=== PATIENT | male | born 1940 | race Caucasian/White ===

== ENCOUNTER 2017-12-05 04:35 | Emergency (ER) | payer MEDICARE ==
[~2017-12-05] VITALS: Ht 172.7 cm; Wt 74.8 kg
[~2017-12-05 04:35] MED LIST: ACET325 PO; ACETYLCYST; ALBU3IS; ALBU3IS INH; ALBU90OI INH; AMLO5 PO; AMOCLA875 PO; ASPI325 PO; Allergy Medicat25 MG PO; Allergy Relief10 M1 PO; BENMENLOZ; BENZ100A PO; BUDE6HFA; BUDE6HFA INH; CEPACOL SORE T1 EACH MM; CHOL10002; CHOL10002 PO; CICL.77TC TOP; CLARITIN10 MG PO; CLOBET30L TOP; CODBUTASA PO; Colace100 MG PO; DIGO.125 PO; DOCU100 PO; Diphenhydramine50 M1 PO; FERR325 PO; FERSU220EL PO; FINA5 PO; FLONASE ALLERG9.9 ML XX; FLUC200 PO; GUAI600T33 PO; Guaifenesin Wit10 ML PO; HYDRA25 PO; Ipratr-Albuterol3 ML INH; KETO15TC TP; LEVO750 PO; LEVSOD100 PO; LEVSOD50 PO; LORA1 PO; LORA10 PO; Levaquin500 MG PO; MAGOXI400 PO; METH10 PO; METO100 PO; MULVITMIND PO; Multivitamins1 EAC4 PO; OMEPRAZOLE MAGN20 MG PO; Omeprazole20 M1; Omeprazole20 M1 PO; RANI150 PO; SENN187 PO; Synthroid112 MCG PO; TAMS.4ER PO; TIOT18; TIOT18 IH; TIOT18 INH; TRAZ50 PO; Ventolin Soln3 ML INH; Vitamin D400 UNI2 PO; WARF2.5 PO; XARELTO20 MG PO
[2017-12-05 05:32] LABS: BASOPHILS ABSOLUTE AUTO 0.05 K/mm3 (0.00-0.23); BASOPHILS PERCENT AUTO 1 % (0-2); EOSINOPHILS ABSOLUTE AUTO 0.09 K/mm3 (0.00-0.68); EOSINOPHILS PERCENT AUTO 1 % (0-6); Hematocrit 37.3 % (37.0-53.0); IMMATURE GRAN ABSOLUTE AUTO 0.04 K/mm3 (0.00-0.10); IMMATURE GRAN PERCENT AUTO 0 % (0-1); LYMPHOCYTES ABSOLUTE AUTO 1.08 K/mm3 (0.84-5.20); LYMPHOCYTES PERCENT AUTO 12 % (21-46); MONOCYTES PERCENT AUTO 15 % (4-13); Mean Corpuscular HGB 26.7 pg (26.0-34.0); Mean Corpuscular HGB Conc 32.2 g/dL (31.5-36.5); Mean Corpuscular Volume 83 fL (80-100); Mean Platelet Volume 10.2 fL (9.1-12.4); NEUTROPHILS ABSOLUTE AUTO 6.65 K/mm3 (1.96-9.15); NEUTROPHILS PERCENT AUTO 72 % (41-73); Platelet Count 198 K/mm3 (150-400); RDW Coefficient Variation 15.7 % (11.7-14.2); RDW Standard Deviation 46.9 fL (35.1-46.3); White Blood Cell Count 9.31 K/mm3 (4.00-11.30)
[2017-12-05 05:43] LABS: International Normalized Ratio 1.15
[2017-12-05 05:56] LABS: Alanine Aminotransfer (ALT/SGP 17 U/L (12-78); Albumin, Blood 3.2 g/dL (3.4-5.0); Albumin/Globulin Ratio 0.9 (0.8-1.8); Alk Phos 68 U/L (50-136); Anion Gap 10 mmol/L (6-16); Aspartate Aminotrans (AST/SGOT 18 U/L (12-37); Bilirubin, Total 0.7 mg/dL (0.1-1.0); Blood Urea Nitrogen 15 mg/dL (8-24); Bun/Creatinine Ratio 13.6 (12.0-20.0); CO2, Blood 24 mmol/L (21-32); Calcium, Blood 8.3 mg/dL (8.5-10.1); Chloride, Blood 103 mmol/L (98-108); Globulin, Blood 3.5 g/dL (2.2-4.0); Glomerular Filtration Rate >60 (60-); Glucose, Blood 101 mg/dL (70-99); Potassium, Blood 3.7 mmol/L (3.5-5.5); Sodium, Blood 137 mmol/L (136-145); Total Protein, Blood 6.7 g/dL (6.4-8.2); Troponin I <0.015 ng/mL (0.000-0.040)
[2018-07-02] MEDS ORDERED: CEFP200 PO (08:57)
[2018-07-02] MEDS ORDERED: Hydrocodone-Ap1 EA23 PO (09:03)
[2018-07-02] MEDS ORDERED: LEVSOD150 PO (09:04)
[2018-07-02] MEDS ORDERED: METPRE4DP PO (09:05)
[2018-07-02] MEDS ORDERED: MOME220I INH (09:05)
[2018-07-02] MEDS ORDERED: PRAV20 PO (09:10)
[2018-07-02] MEDS ORDERED: PANT40 PO (09:10)
[2018-07-02] MEDS ORDERED: THIA100 PO (09:11)
[2018-07-08] MEDS ORDERED: CODEINE-GUAIFE120 ML PO (11:53)
[2018-07-08] MEDS ORDERED: BENMENLOZ PO (11:56)
[2018-07-08] MEDS ORDERED: Augmentin 875-1 EACH PO (11:57)
[2018-07-08] MEDS ORDERED: GAVILAX17 GM PO (11:58)
[2018-07-08] MEDS ORDERED: SACC250C PO (11:59)
[2018-07-08] MEDS ORDERED: FLUT1DIS5 INH (12:00)
[2018-07-18] MEDS ORDERED: Zithromax250 MG (10:21)
[2018-07-18] MEDS ORDERED: CEFP200 PO (10:22)
[2018-07-18] MEDS ORDERED: CYAN100T2 (10:23)
[2018-07-18] MEDS ORDERED: LORA1SY (10:25)
[2018-07-18] MEDS ORDERED: MAGOXI400 (10:25)
== END 2017-12-05 06:35 | disposition home or self-care (01) ==
LOC: ER 04:35
PROVIDERS: Emergency Medicine
DX: I48.91 Unspecified atrial fibrillation (principal); I10 Essential (primary) hypertension; J44.9 Chronic obstructive pulmonary disease, unspecified; E03.9 Hypothyroidism, unspecified; Z91.048 Other nonmedicinal substance allergy status; Z88.8 Allergy status to other drugs, medicaments and biological substances; Z91.041 Radiographic dye allergy status; Z88.1 Allergy status to other antibiotic agents; Z79.899 Other long term (current) drug therapy; Z79.82 Long term (current) use of aspirin; Z87.891 Personal history of nicotine dependence
CPT/HCPCS: 36415; 71046; 80053; 83880; 84484; 85025; 85610; 93005; 93010; 96360; 99283; J7030

== ENCOUNTER 2018-01-26 11:42 | Day surgery (SDC) | payer OTHER, MEDICARE ==
[~2018-01-26] VITALS: Ht 170.2 cm; Wt 76.3 kg
[~2018-01-26 11:42] MED LIST changes: -ALBU3IS INH; +ALBU3IS PO
== END 2018-01-26 17:15 | disposition home or self-care (01) ==
LOC: ORSCSDS 11:42
PROVIDERS: Internal Medicine Gastroenterology
PROC: 0DB58ZX Excision of Esophagus, Via Natural or Artificial Opening Endoscopic, Diagnostic (ICD-10-PCS; principal; 2018-01-26 15:30)
PROC: 0DBL8ZX Excision of Transverse Colon, Via Natural or Artificial Opening Endoscopic, Diagnostic (ICD-10-PCS; principal; 2018-01-26 15:30)
DX: D50.9 Iron deficiency anemia, unspecified (principal); K22.711 Barrett's esophagus with high grade dysplasia; K44.9 Diaphragmatic hernia without obstruction or gangrene; D12.3 Benign neoplasm of transverse colon; K64.8 Other hemorrhoids; K57.30 Diverticulosis of large intestine without perforation or abscess without bleeding; Z80.0 Family history of malignant neoplasm of digestive organs; J44.9 Chronic obstructive pulmonary disease, unspecified; I10 Essential (primary) hypertension; M06.9 Rheumatoid arthritis, unspecified; E03.9 Hypothyroidism, unspecified; Z87.891 Personal history of nicotine dependence; I48.0 Paroxysmal atrial fibrillation; Z83.71 Family history of colonic polyps; Z79.899 Other long term (current) drug therapy; Z79.01 Long term (current) use of anticoagulants; Z79.82 Long term (current) use of aspirin
CPT/HCPCS: 88305; J2370

== ENCOUNTER 2018-02-04 12:05 | Day surgery (SDC) | payer OTHER, MEDICARE | END 2018-02-04 16:44 | disposition home or self-care (01) | LOC: ORSCSDS 12:05 | PROVIDERS: Internal Medicine Gastroenterology | PROC: 0DB58ZZ Excision of Esophagus, Via Natural or Artificial Opening Endoscopic (ICD-10-PCS; principal; 2018-02-04 13:45) | DX: K22.8 Other specified diseases of esophagus (principal); C15.9 Malignant neoplasm of esophagus, unspecified; K44.9 Diaphragmatic hernia without obstruction or gangrene; D50.9 Iron deficiency anemia, unspecified; Z87.11 Personal history of peptic ulcer disease; Z87.891 Personal history of nicotine dependence; J44.9 Chronic obstructive pulmonary disease, unspecified; I48.91 Unspecified atrial fibrillation; Z80.0 Family history of malignant neoplasm of digestive organs; I10 Essential (primary) hypertension; E03.9 Hypothyroidism, unspecified; E78.5 Hyperlipidemia, unspecified; Z79.82 Long term (current) use of aspirin; Z79.899 Other long term (current) drug therapy | CPT/HCPCS: 88305; J7120 ==

== ENCOUNTER 2018-06-19 04:44 | Emergency (ER) | payer MEDICARE ==
[~2018-06-19] VITALS: Ht 167.6 cm; Wt 74.8 kg
[2018-06-19 05:11] LABS: BASOPHILS PERCENT AUTO 0 % (0-2); EOSINOPHILS PERCENT AUTO 0 % (0-6); Hematocrit 37.2 % (37.0-53.0); Hemoglobin 12.4 g/dL (13.5-17.5); IMMATURE GRAN ABSOLUTE AUTO 0.03 K/mm3 (0.00-0.10); IMMATURE GRAN PERCENT AUTO 0 % (0-1); LYMPHOCYTES ABSOLUTE AUTO 0.59 K/mm3 (0.84-5.20); LYMPHOCYTES PERCENT AUTO 8 % (21-46); MONOCYTES ABSOLUTE AUTO 0.33 K/mm3 (0.16-1.47); MONOCYTES PERCENT AUTO 5 % (4-13); Mean Corpuscular HGB 28.2 pg (26.0-34.0); Mean Corpuscular HGB Conc 33.3 g/dL (31.5-36.5); Mean Corpuscular Volume 85 fL (80-100); Mean Platelet Volume 10.4 fL (9.1-12.4); NEUTROPHILS ABSOLUTE AUTO 6.05 K/mm3 (1.96-9.15); NEUTROPHILS PERCENT AUTO 87 % (41-73); Platelet Count 228 K/mm3 (150-400); RDW Standard Deviation 49.9 fL (35.1-46.3)
[2018-06-19 05:25] LABS: Alanine Aminotransfer (ALT/SGP 25 U/L (12-78); Albumin, Blood 3.6 g/dL (3.4-5.0); Albumin/Globulin Ratio 1.1 (0.8-1.8); Alk Phos 65 U/L (50-136); Anion Gap 13 mmol/L (6-16); Aspartate Aminotrans (AST/SGOT 19 U/L (12-37); Bilirubin, Total 0.7 mg/dL (0.1-1.0); Blood Urea Nitrogen 11 mg/dL (8-24); Bun/Creatinine Ratio 12.4 (12.0-20.0); CO2, Blood 22 mmol/L (21-32); Calcium, Blood 7.8 mg/dL (8.5-10.1); Chloride, Blood 97 mmol/L (98-108); Creatinine, Blood 0.89 mg/dL (0.60-1.20); Globulin, Blood 3.3 g/dL (2.2-4.0); Glomerular Filtration Rate >60 (60-); Glucose, Blood 122 mg/dL (70-99); Potassium, Blood 3.4 mmol/L (3.5-5.5); Sodium, Blood 132 mmol/L (136-145); Total Protein, Blood 6.9 g/dL (6.4-8.2); Troponin I <0.015 ng/mL (0.000-0.040)
[2018-06-19] MEDS ORDERED: Zithromax250 MG PO (06:01)
[2018-06-19] MEDS ORDERED: GUAIFEN-CODEINE10 ML PO (06:01)
== END 2018-06-19 07:30 | disposition home or self-care (01) ==
LOC: ER 04:44
PROVIDERS: Emergency Medicine
DX: J44.1 Chronic obstructive pulmonary disease with (acute) exacerbation (principal); Z87.891 Personal history of nicotine dependence; Z91.048 Other nonmedicinal substance allergy status; Z88.8 Allergy status to other drugs, medicaments and biological substances; Z88.1 Allergy status to other antibiotic agents; Z91.041 Radiographic dye allergy status; Z79.899 Other long term (current) drug therapy; Z79.82 Long term (current) use of aspirin
CPT/HCPCS: 36415; 71045; 80053; 83880; 84484; 85025; 93005; 93010; 94640; 96365; 99284-25; J0456; J7050

== ENCOUNTER 2019-05-11 18:57 | Inpatient (IN) | payer MEDICARE ==
[~2019-05-11] VITALS: Ht 170.2 cm; Wt 78.8 kg
[~2019-05-11 18:57] MED LIST changes: -ALBU3IS PO; +Augmentin 875-1 EACH PO; +BENMENLOZ PO; +CEFP200 PO; +CODEINE-GUAIFE120 ML PO; -Colace100 MG PO; +FLUT1DIS5 INH; +GAVILAX17 GM PO; +GUAIFEN-CODEINE10 ML PO; +Hydrocodone-Ap1 EA23 PO; +LORA1SY; +METPRE4DP PO; +MOME220I INH; +PRAV20 PO; +SACC250C PO; -Vitamin D400 UNI2 PO; +Zithromax250 MG PO
[2019-05-11 20:02] LABS: BASOPHILS ABSOLUTE AUTO 0.05 K/mm3 (0.00-0.23); BASOPHILS PERCENT AUTO 1 % (0-2); EOSINOPHILS ABSOLUTE AUTO 0.23 K/mm3 (0.00-0.68); EOSINOPHILS PERCENT AUTO 5 % (0-6); Hematocrit 42.3 % (37.0-53.0); IMMATURE GRAN ABSOLUTE AUTO 0.02 K/mm3 (0.00-0.10); IMMATURE GRAN PERCENT AUTO 0 % (0-1); LYMPHOCYTES ABSOLUTE AUTO 1.06 K/mm3 (0.84-5.20); LYMPHOCYTES PERCENT AUTO 22 % (21-46); MONOCYTES ABSOLUTE AUTO 0.58 K/mm3 (0.16-1.47); MONOCYTES PERCENT AUTO 12 % (4-13); Mean Corpuscular HGB 31.1 pg (26.0-34.0); Mean Corpuscular HGB Conc 33.1 g/dL (31.5-36.5); Mean Corpuscular Volume 94 fL (80-100); Mean Platelet Volume 11.4 fL (9.1-12.4); NEUTROPHILS ABSOLUTE AUTO 2.91 K/mm3 (1.96-9.15); NEUTROPHILS PERCENT AUTO 60 % (41-73); Platelet Count 176 K/mm3 (150-400); RDW Coefficient Variation 16.3 % (11.7-14.2); RDW Standard Deviation 56.1 fL (35.1-46.3); White Blood Cell Count 4.85 K/mm3 (4.00-11.30)
[2019-05-11 20:18] LABS: Anion Gap 7 mmol/L (6-16); Blood Urea Nitrogen 10 mg/dL (8-24); Bun/Creatinine Ratio 14.4 (12.0-20.0); CO2, Blood 24 mmol/L (21-32); Calcium, Blood 8.1 mg/dL (8.5-10.1); Chloride, Blood 105 mmol/L (98-108); Creatinine, Blood 0.69 mg/dL (0.60-1.20); Glomerular Filtration Rate >60 (60-); Glucose, Blood 85 mg/dL (70-99); Potassium, Blood 4.2 mmol/L (3.5-5.5); Sodium, Blood 136 mmol/L (136-145)
[2019-05-11 21:21] LABS: International Normalized Ratio 1.14; Prothrombin Time Results 11.9 Sec (9.7-11.5)
[2019-05-11] MEDS ORDERED: TAMS.4ER PO (21:26)
[2019-05-11] MEDS ORDERED: Aspirin EC81 MG PO (21:26)
[2019-05-11] MEDS ORDERED: Colace100 MG PO (21:26)
[2019-05-11] MEDS ORDERED: ALBU90OI INH (21:27)
[2019-05-11] MEDS ORDERED: Thera-M1 EACH PO (21:28)
[2019-05-11] MEDS ORDERED: Vitamin D400 UNI2 PO (21:28)
[2019-05-11] MEDS ORDERED: EUTHYROX150 MCG PO (21:29)
[2019-05-11] MEDS ORDERED: ZEGERID 40 MG PO (21:31)
[2019-05-11] MEDS ORDERED: B-1100 MG PO (21:31)
[2019-05-11] MEDS ORDERED: Zithromax250 MG PO (21:31)
[2019-05-11] MEDS ORDERED: Vitamin B-12100 MCG PO (21:32)
[2019-05-11] MEDS ORDERED: MAGOXI400 PO (21:33)
[2019-05-11] MEDS ORDERED: ALBU2.5V5 NEB (21:34)
[2019-05-11] MEDS ORDERED: ASCO500 PO (21:35)
[2019-05-11] MEDS ORDERED: CETI5 PO (21:35)
[2019-05-11] MEDS ORDERED: CROMOLYN SODIUM26 ML (21:35)
[2019-05-11] MEDS ORDERED: Ferrous Glucon324 M1 PO (21:36)
[2019-05-11] MEDS ORDERED: FINA5 PO (21:36)
[2019-05-11] MEDS ORDERED: Flonase 0.05% N16 GM (21:37)
[2019-05-11] MEDS ORDERED: FOLI1 PO (21:38)
[2019-05-11] MEDS ORDERED: MONT10T PO (21:39)
[2019-05-11] MEDS ORDERED: LIDO700A20 TOP (21:39)
[2019-05-11] MEDS ORDERED: SENN187 PO (21:40)
[2019-05-11] MEDS ORDERED: ASMANEX220 MCG INH (21:40)
[2019-05-11] MEDS ORDERED: STIOLTO RESPIMAT4 GM INH (21:41)
[2019-05-12 04:56] LABS: Hematocrit 41.9 % (37.0-53.0); Mean Corpuscular HGB 30.5 pg (26.0-34.0); Mean Corpuscular HGB Conc 33.4 g/dL (31.5-36.5); Mean Corpuscular Volume 91 fL (80-100); Mean Platelet Volume 11.8 fL (9.1-12.4); Platelet Count 168 K/mm3 (150-400); RDW Coefficient Variation 16.3 % (11.7-14.2); RDW Standard Deviation 54.2 fL (35.1-46.3); Red Blood Cell Count 4.59 M/mm3 (4.30-5.90); White Blood Cell Count 12.11 K/mm3 (4.00-11.30)
[2019-05-12 05:32] LABS: Alanine Aminotransfer (ALT/SGP 25 U/L (12-78); Albumin, Blood 3.5 g/dL (3.4-5.0); Albumin/Globulin Ratio 1.1 (0.8-1.8); Alk Phos 84 U/L (50-136); Anion Gap 8 mmol/L (6-16); Aspartate Aminotrans (AST/SGOT 23 U/L (12-37); Bilirubin, Total 0.7 mg/dL (0.1-1.0); Blood Urea Nitrogen 11 mg/dL (8-24); Bun/Creatinine Ratio 16.2 (12.0-20.0); CO2, Blood 23 mmol/L (21-32); Chloride, Blood 106 mmol/L (98-108); Creatinine, Blood 0.68 mg/dL (0.60-1.20); Globulin, Blood 3.3 g/dL (2.2-4.0); Glomerular Filtration Rate >60 (60-); Glucose, Blood 103 mg/dL (70-99); Potassium, Blood 4.4 mmol/L (3.5-5.5); Sodium, Blood 137 mmol/L (136-145); Total Protein, Blood 6.8 g/dL (6.4-8.2)
--- NOTE | 2019-05-12 06:21 | NUR ---
PT NEW ADMIT THIS SHIFT FOR LEFT HIP FX. PT VSS, O2 INC TO 4LNC TO KEEP SATS >90%. LUNGS COARSE T/O, W/HARSH UNPROD COUGH. PT ALERT, IS FORGETFUL AND IMPULSIVE AT TIMES, NEEDING FREQ REORIENTING. PAIN MGD W/MEDS NON PHARM OPTIONS PT RODERICK. I/O CATH DONE X1, PT ASSISTED W/URINAL. PT MOVES SELF IN BED, USES CALL LIGHT AT TIMES, BED ALARM ON FOR SAFETY. PT NPO POST MIDIGHT, IVF CONT PER ORDERS. PLAN FOR OR TODAY. WILL CONT TO MONITOR UNTIL REP GIVEN TO ONCOMING RN.
--- NOTE | 2019-05-12 06:55 | NUR ---
REPORT FROM ZULMA MENENDEZ. ASSUMED PT CARE.
--- NOTE | 2019-05-12 07:05 | NUR ---
PT APPEARS TO BE RESTING IN POSITION OF COMFORT. ASSESSMENT AT CHARTED. CALL LIGHT IN REACH. BEDALARM ACTIVE DUE TO PT RISK FOR FALLING.
--- NOTE | 2019-05-12 07:31 | NUR ---
RESP THERAPIST TO ROOM.
--- NOTE | 2019-05-12 07:50 | NUR ---
PLACED PT ON BEDPAN PER PT REQUEST FOR BM. PT PASSED GAS, NO STOOL. REPOSITION AND PULLED PT UP IN BED.
--- NOTE | 2019-05-12 09:15 | NUR ---
PT WITH LARGE STOOL. EMILE CARE COMPLETE. PT MEDICATED WITH FENTANYL PER EMAR. LIDOCAINE PATCH PLACED.
--- NOTE | 2019-05-12 09:45 | NUR ---
DR BERNSTEIN TO ROOM TO CONSENT PT TO PROCEDURE. NEW 18G TO LEFT FA. BLADDER SCAN AT THIS TIME SHOWS 600ML IN BLADDER.
--- NOTE | 2019-05-12 10:00 | NUR ---
IN AND OUT CATH DONE, 700ML YELLOW URINE DRAINED. PERSONAL FAN PROVIDED TO PT. CALL LIGHT IN REACH.
--- NOTE | 2019-05-12 11:19 | NUR ---
LUKAS MENENDEZ FROM DAY SURGERY TO ROOM, PT TO DAY SURGERY.
[2019-05-12 13:57] LABS: pH Blood Arterial 7.31 (7.35-7.45)
[2019-05-12 13:58] LABS: PO2 Arterial 22 mmHg (80-100)
--- NOTE | 2019-05-12 14:46 | NUR ---
REPORT TO GLENDA MENENDEZ IN ICU. PT BELONGINGS BROUGHT TO ICU.
--- NOTE | 2019-05-12 14:51 | NUR ---
1340-PT BECAME VERY AGITATED AND COMBATIVE. C/O HIP PAIN. TEARING OFF O2 AND ALL MONITORS. HITTING AND KICKING STAFF. MED FOR PAIN. SECURITY AND DR. CAMP CALLED. ABG DRAWN AND PT PLACED ON BIPAP AND TRANSFERRED TO ICU.
--- NOTE | 2019-05-12 14:51 | NUR ---
ARRIVAL TO ICU PT. ARRIVES WITH BOOKKEEPING CLERKS SUPERVISOR FROM PACU AND IN BILAT WRIST RESTRAINTS. PT. PULLING AT RESTRAINTS AND ATTEMPING TO GRAB AT STAFF. PT ON BIPAP UPON ARRIVAL, SETTINGS 10/5, 40%. PT. HAS BANDAGE IN PLACE TO LEFT HIP; CDI. PT TRANSFERRED TO ICU BED, REMAINS IN BILAT WRIST RESTRAINTS AT THIS TIME. PT. VSS UPON ARRIVAL. WILL CONTINUE TO MONITOR.
--- NOTE | 2019-05-12 15:20 | NUR ---
PT. MORE ALERT AT THIS TIME. PT. RESTRAINTS DC'D AT THIS TIME. DR. CRANE AT BEDSIDE. PT. FOLLOWING COMMANDS AND ANSWERING QUESTIONS. VSS.
[2019-05-12 16:09] LABS: Base Excess Venous -0.5 mmol/L; Bicarbonate Venous 23.1 mmol/L (24.0-30.0); PCO2 Venous 43.5 mmHg (38-42); PO2 Venous 35.1 mmHg (38-42); pH Blood Venous 7.37 (7.34-7.37)
--- NOTE | 2019-05-12 16:40 | NUR ---
CALL TO DR. CORREA FOR VBG RESULTS AND UPDATE PT O2 CURRENTLY ON 8L HIGHFLOW NC. PER DR. CORREA PT TO BE PCU STATUS TONIGHT DUE TO O2 DEMAND AND PLANS FOR TRANSFER TO SURGICAL IN THE AM IF IMPROVED.
--- NOTE | 2019-05-12 17:25 | NUR ---
AGGRESSION ATTEMPTED TO GET PT OFF OF OLD SHEETS. PT. WAS ROLLED SLOWLY, PT ATTEMPTING TO SWING AT STAFF. PT. REFUSING TO BE REPOSITONED. PT. STATES "IM GOING TO FUCKING PUNCH YOU ALL IF YOU TRY AND MOVE ME". PT. STATES "I WANT TO BE LEFT ALONE AND I WILL START SWINGING". OLD LINENS REMOVED. PT. AGREED TO XRAY AFTER LONG CONVERSATION. O2 TITRATED DOWN TO 6L. PT ASSISTED TO SIT UP AND EAT DINNER. BEER ON DINNER TRAY PER DR. FARLEY
--- NOTE | 2019-05-12 17:54 | NUR ---
SHIFT SUMMARY PT. REMAINS ALERT AND ORIENTED. PT. CURRENTLY ON 6L NC WITH HUMIDIFIED AIR. PT. VSS T/O SHIFT. PT. BECOMES QUICKLY AGGRESSIVE WHEN ATTEMPTING TO REPOSITION. PT. HAS PEREZ IN PLACE DRAINING TO GRAVITY DUE TO RETENTION. REPORT TO ONCOMING RN.
--- NOTE | 2019-05-12 22:55 | NUR ---
START OF SHIFT: REPORT FROM GLENDA MENENDEZ. PT RESTING WITH EYES CLOSED AT THAT TIME. VSS. PT AWAKENED A SHORT TIME LATER AND BEGAN COUGHING WITH A GARBLE SOUNDING COUGH. PT CALM AND COOPERATIVE AT THAT TIME AND CONVERSED APPROPRIATELY. PT WAS A+O BUT COULD NOT REMEMBER THAT HE WAS IN THE HOSPITAL. PT, HOWEVER, GREW INCREASINGLY CONFUSED, AGITATED, AND ANXIOUS T/O THE EVENING NOT RELIEVED WITH CONSOLING, MEDICATIONS, NOR REDIRECTION. CIWA 25. RESTRAINTS RE-INITIATED AND HOSPITALIST NOTIFIED WITH NEW ORDERS GIVEN. PT CALMED AFTER ATIVAN ADMIN 0.5mg X2 AND IS CURRENTLY RESTING QUIETLY WITH BI-PAP ON. SETTINGS: 07/03, RATE 12, FiO2 40%. WILL CONTINUE TO MONITOR.
--- NOTE | 2019-05-13 00:45 | NUR ---
PT TOLERATED SLIGHT ROLL TO THE RIGHT. PT HAS BEEN MORE CALM AND HAS BEEN SLEEPING SINCE ATIVAN ADMIN. PT AWAKENED SLIGHTLY AND AGREED TO BE MOVED. PT C/O PAIN BUT WAS ABLE TO TOLERATE PILLOW SUPPORT LIFTING LEFT SIDE SLIGHTLY. HEELS ELEVATED. SCDS IN PLACE. VSS.
[2019-05-13 03:24] LABS: Base Excess Venous 0.4 mmol/L; Bicarbonate Venous 23.7 mmol/L (24.0-30.0); PCO2 Venous 47.3 mmHg (38-42); PO2 Venous 38.4 mmHg (38-42); pH Blood Venous 7.35 (7.34-7.37)
[2019-05-13 03:26] LABS: BASOPHILS ABSOLUTE AUTO 0.06 K/mm3 (0.00-0.23); BASOPHILS PERCENT AUTO 1 % (0-2); EOSINOPHILS ABSOLUTE AUTO 0.34 K/mm3 (0.00-0.68); EOSINOPHILS PERCENT AUTO 3 % (0-6); Hematocrit 40.6 % (37.0-53.0); Hemoglobin 13.1 g/dL (13.5-17.5); IMMATURE GRAN ABSOLUTE AUTO 0.03 K/mm3 (0.00-0.10); IMMATURE GRAN PERCENT AUTO 0 % (0-1); LYMPHOCYTES ABSOLUTE AUTO 0.85 K/mm3 (0.84-5.20); LYMPHOCYTES PERCENT AUTO 8 % (21-46); MONOCYTES ABSOLUTE AUTO 1.42 K/mm3 (0.16-1.47); MONOCYTES PERCENT AUTO 14 % (4-13); Mean Corpuscular HGB 30.8 pg (26.0-34.0); Mean Corpuscular HGB Conc 32.3 g/dL (31.5-36.5); Mean Platelet Volume 11.3 fL (9.1-12.4); NEUTROPHILS ABSOLUTE AUTO 7.58 K/mm3 (1.96-9.15); NEUTROPHILS PERCENT AUTO 74 % (41-73); Platelet Count 144 K/mm3 (150-400); RDW Coefficient Variation 17.1 % (11.7-14.2); RDW Standard Deviation 59.1 fL (35.1-46.3); Red Blood Cell Count 4.26 M/mm3 (4.30-5.90); White Blood Cell Count 10.28 K/mm3 (4.00-11.30)
[2019-05-13 03:28] LABS: Mean Corpuscular Volume 95 fL (80-100)
[2019-05-13 03:45] LABS: Anion Gap 8 mmol/L (6-16); Blood Urea Nitrogen 9 mg/dL (8-24); CO2, Blood 26 mmol/L (21-32); Chloride, Blood 107 mmol/L (98-108); Creatinine, Blood 0.82 mg/dL (0.60-1.20); Glomerular Filtration Rate >60 (60-); Glucose, Blood 102 mg/dL (70-99); Potassium, Blood 4.4 mmol/L (3.5-5.5); Sodium, Blood 141 mmol/L (136-145)
--- NOTE | 2019-05-13 06:05 | NUR ---
PT MEDICATED FOR PAIN. PT REPOSITIONED TO RIGHT SIDE AND STILL YELLS OUT, "WHEN I SAY OUCH! THAT MEANS IT HURTS!". PT CONTINUES TO TRY TO HIT WHEN MOVED BUT IS MORE CONSOLEABLE THAN AT START OF SHIFT. PT REMAINS SLIGHTLY HYPERTENSIVE. WILL PASS ONTO DAY RN.
--- NOTE | 2019-05-13 07:30 | NUR ---
ASSUMED CARE OF PATIENT; SEE ASSESSMENT CHARTING FOR DETAILS. LUNGS CLEAR BUT CONTINUES WITH ONGOING, INTERMITTENT COUGH WHICH PATIENT STATES HE HAS HAD SINCE CHILDHOOD. OXYGEN AT 7L/MIN VIA NC (HUMIDIFIED OXYGEN); BIOX. STAYING HIGH TO MID 90'S; REDUCED DOWN TO 5L/MIN. MONITOR REMAINS NSR AND VSS. PEREZ TO GRAVITY AND DRAINING FAIR AMOUNTS OF MENDOZA COLORED URINE. RN INQUIRED IF PATIENT HUNGRY AND HE STATED HE COULD EAT A LITTLE. REPOSITIONED, UPRIGHT, IN BED AND ASSISTED WITH MEAL SETUP; PATIENT WANTING TO FEED SELF. SLOW BUT STEADY TO FEED SELF; DRINKS FLUID BEST WITHOUT USE OF STRAW. BEER CAN ON BREAKFAST TRAY; TAKING SIPS. RESTRAINTS DC'D AT 0745; PATIENT COOPERATIVE AND NOT TRYING TO CLIMB OOB.
--- NOTE | 2019-05-13 08:51 | NUR ---
05/13/19 0851 Jessica Coker VERIFICATIONS: EDIT CHART.
--- NOTE | 2019-05-13 10:00 | NUR ---
ORDER TO CHANGE PATIENT TO SURGICAL FLOOR STATUS WITH NO TELEMETRY PLACED.
--- NOTE | 2019-05-13 12:21 | NUR ---
DR. LOU CONTACTED BY CHARGE NURSE, GOPI REYES,RN, RE: PATIENTS REOCCURRING AGGITATION AND HALLUCINATIONS ETC.; GIVEN BY LIBRIUM PO BY RN AND RECEIVED FENTANYL 50MCG IV EARLIER IN AM AND THEN A DOSE OF ATIVAN 1MG IV. PATIENT STARTED TO BECOME INCREASINGLY CONFUSED ETC. FOLLOWING DOSING OF ATIVAN. ORDER RECEIVED TO CHANGE PATIENT TO ICU STATUS; PRECEDEX MAY BE USED PRN.
--- NOTE | 2019-05-13 14:50 | NUR ---
DR. BRASHER HERE; TO ADD IVF'S TO HELP KEEP PATIENT HYDRATED; REDUCED OXYGEN TO 3L/MIN NC; BIOX 100%; PATIENT SLEEPING. SEE ADJUSTMENTS ON MEDICATIONS.
--- NOTE | 2019-05-13 15:25 | NUR ---
UDN TX STARTED; PATIENT'S RR UP TO 30-36/MIN.; WILL MONITOR. CONTINUES TO SLEEP IF NOT DISTURBED. OXYGEN DOWN TO 2L/MIN NC AROUND 1505 D/T BIOX. STAYING HIGH 90'S.
--- NOTE | 2019-05-13 18:15 | NUR ---
SUMMARY: FED BY RN; ATE ONLY ABOUT 5%; REQUIRED FEEDING; NO STRAW USED; SYRINGE USED FOR FLUIDS BECAUSE PATIENT CONT. TO SPILL CUP. LUNGS CLEAR BUT COUGH REMAINS VERY MOIST; TO HAVE CXR IN AM. TEMP UP TO 99.1 THIS AFTERNOON; PATIENT SLEEPING MOST OF SHIFT BUT STARTS TO BAT AT THE NURSES WHEN PERSONAL CARE AND REPOSITIONING DONE. CIWA UP/DOWN. LIBRIUM PO PREVIOUSLY. DR. BRASHER CHANGED PRN MEDS. AROUND AND ORDERED IVF'S D/T POOR ORAL INTAKE. L HIP DRESSING D/I.
--- NOTE | 2019-05-13 18:35 | NUR ---
SUDDEN ONSET OF AFIB/RVR; ENCOURAGED PATIENT TO CDB; RATE SLOWS DOWN TO 100'S TO 120'S BUT THEN BACK OVER 130'S+. REPOSITIONED PATIENT AND FENTANYL 50MCG IV TO HELP WITH ANY PAIN ISSUES; SBP DOWN TO 90'S; MAP 68. EKG DONE TO EVAL.; SEE STRIPS AND EKG.
--- NOTE | 2019-05-13 21:36 | NUR ---
ASSUMED CARE OF PATIENT AT [facility] FROM [facility]O Bradford RN. PATIENT CONFUSED; IRRITABLE AND ANGRY TOWARDS STAFF. PATIENT PULLING AT LINES; REMOVING BIPAP. PATIENT AFIB RVR AT SHIFT CHANGE; PREVIOUS SHIFT CALLED DR. FELDMAN; ORDERS RECIEVED FOR 500 ML BOLUS FOR SBP IN THE 90S THEN CARDIZEM GTT ONCE BP IMPROVED AND TO CALL IF HYPTENSION. PATIENT CONVERED TO NSR WITH PAC'S AT 2109; CARDIZEM DISCONTINUED; IVF INFUSING PER ORDER. PATIENT ORIENTED TO SELF AND ; EYES CLOSED MOST OF THE TIME; FOLLOWS DIRECTIONS AT TIMES; ATTEMPTS TO HIT STAFF DURING Q2H TURNS; PATIENT S/P HIP PINNING TO LEFT HIP; DRESSING C/D/I. PATIENT TAKES PILLS IN APPLESAUCE. PATIENT HAS HARSH COUGH THAT HE REPORTS HE HAS HAD FOR A WHILE; L/S CLEAR. CIWA 10; IRRITABILITY RATED HIGH. OXYGEN SATURATION ABOVE 90% ON BIPAP 10/ 40% FIO2 OR 5LPM VIA NC; REPORT BASELINE IS 2LPM VIA NC. SOFT BILATERAL WRIST RESTRAINTS RENEWED AND APPLIED BY CABLE INSTALLATION TECHNICIANSHON Deal URINARY CATHETER DRAINING MENDOZA URINE. PATIENT CURRENTLY RESTING IN BED; CALL LIGHT IN REACH; BED IN LOWEST POSISTION; BED ALARM ON; WILL CONTINUE TO MONITOR AND ASSESS UNTIL END OF SHIFT.
--- NOTE | 2019-05-14 04:09 | NUR ---
PATIENT HAS SLEPT ABOUT SEVEN HOURS; TURNED EVERY TWO HOURS; PATIENT GIVEN IV FENTANYL REPORTING PAIN 9/10 IN HIP; GOOD RESULTS. CIWA 11; LIBRUIM GIVEN IN APPLESAUCE. PATIENT HAS BEEN YELLING OUT AT TIMES; MUMBLING. REPORTS HE WANTS TO GO HOME. CONTINUES TO PULL AT LINES AND BIPAP; CLENCHING FIST WHEN STAFF IN ROOM AND ATTEMPTING TO HIT STAFF DURING TURNING. 300 ML MENDOZA COLORED URINE OUT SO FAR. PATIENT WENT INTO SVT WHILE THIS RN WAS ON BREAK TWICE; CORPORATE SAFETY MANAGER BRONSON ENCOURAGED PATIENT TO COUGH; PATIENT CURRENTLY IN NSR W/ PAC'S RATE IN 90'S. RT REDUCED FIO2 FROM 40 TO 35; PATIENT WEARS 4LPM VIA NC WHEN TAKING BREAK FROM BIPAP. NO OTHER ACUTE CHANGE TO REPORT. WILL CONTINUE TO MONITOR AND ASSESS UNTIL END OF SHIFT.
[2019-05-14 04:16] LABS: BASOPHILS ABSOLUTE AUTO 0.04 K/mm3 (0.00-0.23); BASOPHILS PERCENT AUTO 0 % (0-2); EOSINOPHILS ABSOLUTE AUTO 0.26 K/mm3 (0.00-0.68); EOSINOPHILS PERCENT AUTO 3 % (0-6); Hematocrit 41.4 % (37.0-53.0); Hemoglobin 12.9 g/dL (13.5-17.5); IMMATURE GRAN ABSOLUTE AUTO 0.05 K/mm3 (0.00-0.10); IMMATURE GRAN PERCENT AUTO 1 % (0-1); LYMPHOCYTES ABSOLUTE AUTO 0.71 K/mm3 (0.84-5.20); LYMPHOCYTES PERCENT AUTO 7 % (21-46); MONOCYTES ABSOLUTE AUTO 1.54 K/mm3 (0.16-1.47); MONOCYTES PERCENT AUTO 15 % (4-13); Mean Corpuscular HGB 30.8 pg (26.0-34.0); Mean Corpuscular HGB Conc 31.2 g/dL (31.5-36.5); Mean Platelet Volume 12.2 fL (9.1-12.4); NEUTROPHILS ABSOLUTE AUTO 7.47 K/mm3 (1.96-9.15); NEUTROPHILS PERCENT AUTO 74 % (41-73); Platelet Count 123 K/mm3 (150-400); RDW Coefficient Variation 17.2 % (11.7-14.2); RDW Standard Deviation 62.2 fL (35.1-46.3); Red Blood Cell Count 4.19 M/mm3 (4.30-5.90); White Blood Cell Count 10.07 K/mm3 (4.00-11.30)
[2019-05-14 04:17] LABS: Mean Corpuscular Volume 99 fL (80-100)
[2019-05-14 04:34] LABS: Albumin, Blood 2.8 g/dL (3.4-5.0); Anion Gap 12 mmol/L (6-16); Blood Urea Nitrogen 8 mg/dL (8-24); Bun/Creatinine Ratio 11.9 (12.0-20.0); CO2, Blood 20 mmol/L (21-32); Calcium, Blood 7.7 mg/dL (8.5-10.1); Chloride, Blood 107 mmol/L (98-108); Creatinine, Blood 0.68 mg/dL (0.60-1.20); Glomerular Filtration Rate >60 (60-); Glucose, Blood 94 mg/dL (70-99); Magnesium, Blood 2.2 mg/dL (1.6-2.4); Phosphorus, Blood 1.9 mg/dL (2.5-4.9); Potassium, Blood 3.9 mmol/L (3.5-5.5); Sodium, Blood 139 mmol/L (136-145)
--- NOTE | 2019-05-14 05:36 | NUR ---
CHEST XRAY COMPLETED
--- NOTE | 2019-05-14 06:52 | NUR ---
NO ACUTE CHANGES TO REPORT. PATIENT DROWSY AFTER LIBRIUM. PHOS 1.9 THIS AM; WILL PASS ONTO DAYSHIFT.
--- NOTE | 2019-05-14 07:15 | NUR ---
ASSUMED CARE OF PATIENT; SEE ASSESSMENT CHARTING FOR DETAILS. PATIENT SLEEPING; ROUSES TO PERSISTENT VERBAL AND TACTILE STIMULATION; RESPONDS SLOW TO QUESTIONS AND SPEECH SOFT BUT REASONABLY CLEAR; EYES SHUT MOST OF TIME; OPENS FOR ONLY A FEW SECONDS WHEN ASKED TO OPEN EYES. PAIN PERSISTS TO L HIP; MOST NOTABLE WITH REPOSITIONING. LUNGS CLEAR; ON BIPAP WITH SETTINGS 10/6; RATE 12 AND FIO2 35%.; BIOX. MID TO HIGH 90'S. MONITOR NSR WITH RATE 80'S TO 90'S; NO BOUT OF SVT OR AFIB NOTED TODAY. PEREZ DRAINING FAIR AMOUNTS OF MED. YELLOW TO LT MENDOZA URINE. IVF CONTINUES AT 50CC/HR WITH NS. BILAT. SOFT WRIST RESTRAINTS IN PLACE TO PREVENT PATIENT FROM PULLING ON LINES OR HURTING SELF; SWINGS AT STAFF WHEN HE IS REPOSITIONED (INCREASED L HIP PAIN D/T POST-OP ORIF).
--- NOTE | 2019-05-14 09:20 | NUR ---
DR. LOU HERE EARLIER; NO ACUTE CHANGES; SEE ORDERS.
--- NOTE | 2019-05-14 09:30 | NUR ---
PATIENT MORE AWAKE AND WANTING TO EAT; ORAL CARE DONE AND DENTURES REPLACED; BIPAP REMOVED AND PLACED ON 4L/NC. GIVEN A FEW BITES OF SCRAMBLED EGGS AND THEN PO MEDS CRUSHED AND MIXED WITH APPLESAUCE; TOLERATED WELL BUT MUST BE FED. SIPS OF WATER AND JUICE GIVEN USING SYRINGE; COUGHS WORSEIF STRAW USED AND SPILLS BADLY WHEN NO LID ON CUP.
--- NOTE | 2019-05-14 11:15 | NUR ---
PATIENTS' BROTHER DEMARCO IN; RN UPDATED HIM ON PATIENTS' STATUS; BROTHER SITTING IN CHAIR AT BEDSIDE WHEN RN LEFT ROOM. DR. BRASHER IN FOR ROUNDS AND ASSESSED PATIENT AND SPOKE TO BROTHER. WILL REDUCE LIBRIUM DOSE; SEE ORDERS.
--- NOTE | 2019-05-14 13:00 | NUR ---
PATIENT MORE ALERT AND OPENING EYES SPONTANEOUSLY FOR SHORT PERIODS. AGREEABLE TO EAT LUNCH. RN FED PATIENT ABOUT 20% OF LUNCH; NO CHOKING; OCCASIONAL COUGHIN BUT PER PATIENTS' USUAL. SYRINGE USED TO GIVE FLUIDS.
--- NOTE | 2019-05-14 18:00 | NUR ---
SUMMARY: TOLERATED ABOUT 20% OF DINNER; RN FED PATIENT; SLOW BUT STEADY. FLUIDS (BEER, WATER, JUICE) GIVEN USING MEDICINE CUP OR 10CC SYRINGE; APPEARS TO CAUSE LESS COUGHING SPELLS; PATIENT STATES HE HAS HAD THIS COUGH SINCE HE CAN REMEMBER. NO STRAWS USED; TEND TO ACCENTUATE COUGHING. PEREZ DRAINED 350CC OF MENDOZA URINE. CONTINUES WITH NS AT 50CC/HR AND RECEIVED 500CC OF K+PHOS. (30MMOL). DR. BRASHER REDUCED DOSE OF LIBRIUM D/T PATIENT REMAINS VERY SLEEPY/LETHARGIC AND DIFFICULT TO ROUSE. ANSWERING QUESTIONS, OF RN, WHILE EATING DINNER; CONVERSATION APPROPRIATE AND AWARE HE HAD SURG. ON L HIP. CIWA READINGS (03/10/10) T/O SHIFT. WILL REPORT TO ONCOMING RN.
--- NOTE | 2019-05-14 21:34 | NUR ---
CARE ASSUMED REPORT RECEIVED, CARE ASSUMED FROM SHON CASAS. PT AGITATED AND CONFUSED, MEDICATED WITH LIBRIUM. UNABLE TO REASON WITH PATIET REGARDING EDUCATION. PT IS ABLE TO STATE NAME, BIRTHDAY AND PAIN LEVEL AND TALKS ABOUT HIS HIP BEING BROKEN, BUT THEN STATES, "TAKE ME BACK TO [facility]." AND "WHO IS SITTING NEXT TO ME." 02 SATURATIONS DROPPING, ATTEMPTED TO PL[address] BIPAP AFTER REPEATED EDUCATION AND PT YELLS "NO" "NO." COUGH CONTINUES, PT REPORTS CHRONIC. 02 TITRATED TO MAINTAIN OXYGEN SATURATIONS. SINCE MEDICATING WITH LIBRIUM AND FOR PAIN, PT HAS CALMED DOWN AND FALLEN ASLEEP WITHIN THE LAST 20 MINUTES. VITALS STABLE, SEE FLOWSHEET. SEE SHIFT ASSESSMENT. PT ALTERNATING BETWEEN CALLING OUT FOR NEEDS AND APPROPRIATE USE OF CALL LIGHT.
--- NOTE | 2019-05-14 23:47 | NUR ---
REASSESSMENT PT HAS REQUIRED INCREASED 02 TO MAINTAIN SATURATIONS, CURRENTLY AT 7 LPM NASAL CANNULA. PT REFUSING BIPAP. PT REQUESTED COUGH DROP FOR PERSISTENT COUGH. FOLLOWING COMMANDS AND AGREED TO SUCK ON LOZENGE, BUT IMMEDIATELY SWALLOWED WHEN PUT IN MOUTH. PROVIDED PT WITH WATER VIA SYRINGE TO WASH DOWN AND PT TOLERATED WELL. PT CONTINUES TO BE CONFUSED, FORGETING HE IS IN THE HOSPITAL BUT DOES KNOW HE HAD SURGERY. AGITATION MINIMAL AT THIS TIME. VITALS CONTINUE TO BE STABLE.
[2019-05-15 03:53] LABS: Hematocrit 36.5 % (37.0-53.0); Hemoglobin 11.6 g/dL (13.5-17.5); Mean Corpuscular HGB 31.5 pg (26.0-34.0); Mean Corpuscular HGB Conc 31.8 g/dL (31.5-36.5); Mean Corpuscular Volume 99 fL (80-100); Mean Platelet Volume 11.9 fL (9.1-12.4); Platelet Count 119 K/mm3 (150-400); RDW Coefficient Variation 17.3 % (11.7-14.2); RDW Standard Deviation 63.2 fL (35.1-46.3); Red Blood Cell Count 3.68 M/mm3 (4.30-5.90); White Blood Cell Count 7.97 K/mm3 (4.00-11.30)
[2019-05-15 04:11] LABS: Albumin, Blood 2.4 g/dL (3.4-5.0); Anion Gap 7 mmol/L (6-16); Blood Urea Nitrogen 7 mg/dL (8-24); Bun/Creatinine Ratio 11.7 (12.0-20.0); CO2, Blood 23 mmol/L (21-32); Calcium, Blood 7.5 mg/dL (8.5-10.1); Chloride, Blood 110 mmol/L (98-108); Glomerular Filtration Rate >60 (60-); Glucose, Blood 94 mg/dL (70-99); Phosphorus, Blood 2.5 mg/dL (2.5-4.9); Potassium, Blood 3.9 mmol/L (3.5-5.5); Sodium, Blood 140 mmol/L (136-145)
--- NOTE | 2019-05-15 06:01 | NUR ---
SUMMARY SINCE PREVIOUS NOTE, PT HAS CONTINUED TO REQUIRE HIGH FLOW NASAL CANNULA. REPEATEDLY REFUSES BIPAP. THIS MORNING PT CONVERTED TO AFIB RVR RATE 140'S-150'S. NOTIFIED DR. FELDMAN, ONE TIME DOSE OF METOPROLOL GIVEN. SINCE THEN, PT HAS BEEN CONVERTING IN AND OUT OF AFIB. UPDATED DR. FELDMAN, ONE TIME DOSE FOR DILTIAZEM ORDERED. AT THIS TIME PT HAS BEEN IN NORMAL SINUS WITH A RATE OF 90'S FOR APPROXIMATELY FIVE MINUTES, WILL CONTINUE TO MONITOR AND ASSESS FOR NEED OF ONE TIME DOSE OF DILTIAZEM. DURING PERIOD OF AFIB RVR, ATTEMPTED TO PLACE BIPAP MASK ON PT'S FACE HE DID NOT DISAGREE AT THAT TIME. 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 PT HAS CONTINUED TO HAVE ELEVATED CIWA WITH CONFUSION, HEADACHE AND AGITATION AND HAS BEEN MANAGED WITH LIBRIUM. PT HAS ALLOWED TURNS AND ADL'S TO AN EXTENT, HE AGREES BUT QUICKLY BECOMES AGITATED AND TELLS STAFF TO LEAVE ROOM. PT HAS MADE NO ATTEMPTS TO HURT STAFF OR SELF. HIP DRESSING REMAINS C/D/I, CMS IN TACT. PT AVOIDING USE OF THIS LEG DUE TO PAIN. MEDICATED PER EMAR WITH FENTANYL. PT ALSO CONFUSED AND STATING "I AM GETTING OUT OF BED." AT THIS POINT PT TOO WEAK TO BE SUCCESSFUL IN GETTING OUT OF BED INDEPENDENTLY, BUT BED ALARM IN PLACE.
--- NOTE | 2019-05-15 06:37 | NUR ---
HEART RHYTHM PT HAS NOW BEEN IN NORMAL SINUS RHYTHM WITH A RATE IN THE 90'S FOR GREATER THAN 30 MINUTES. DILTIAZEM HELD.
--- NOTE | 2019-05-15 06:59 | NUR ---
REPORT TO SHON CASAS TO ASSUME CARE
--- NOTE | 2019-05-15 08:00 | NUR ---
ASSUMED CARE OF PATIENT; SEE ASSESSMENT CHARTING FOR DETAILS. LUNGS DIMINISHED IN LOWER LOBES; COUGH REMAINS COARSE/HARSH BUT NON-PRODUCTIVE; CEPACOL LOZENGE GIVEN TO EASE COUGHING IRRITATION; RN STAYED IN ROOM WHILE PATIENT SUCKED ON LOZENGE; RN THEN USED KLEENEX AND HAD PATIENT SPIT OUT REMAINDER OF LOZENGE BEFORE LEAVING ROOM. BATHED AND LINEN CHANGED BY RN'S AND THEN PATIENT PLACED IN RECLINER CHAIR WITH CEILING LIFT. FENTANYL 50MCG IVT PRIOR TO BATH. OXYGEN AT 4 1/2 TO 5L/MIN. BIOX LOW 90'S. AFEBRILE THIS AM; VSS. PEREZ DRAINING SMALL AMOUNT OF MENDOZA COLORED URINE. NS INFUSING AT 50ML/HR. SCD'S REMAIN IN PLACE.
--- NOTE | 2019-05-15 09:40 | NUR ---
DR. LOU HERE; PATIENT TO BE CHANGED TO PCU STATUS. CONT. WITH BOUTS OF ATRIAL FIB. RVR; RN WILL GIVE 5MG IV METOPROLOL; PATIENT ALREADY RECEIVED PO DOSE OF 37.5MG ABOUT 1/2HR AGO. AFEBRILE AND VSS. TOLERATED SMALL AMOUNTS FOR BREAKFAST. LUNGS WITH INTERMITTENT UPPER AIRWAY RHONCHI; COUGH REMAINS MOIST AND HARSH; ROBITUSSIN AVAILABLE Q 6 HR PRN. CEPACOL LOZENGES ALSO AVAILABLE; BOTH HELPFUL.
--- NOTE | 2019-05-15 12:00 | NUR ---
DR. BERNSTEIN (ORTHO) HERE TO EVAL. PATIENT; ASSESSED L HIP DRESSING; NO CHANGES.
--- NOTE | 2019-05-15 12:45 | NUR ---
DR. BRASHER HERE; ORDERED FLUTTER VALVE AND INCENTIVE SPIROMETER TO HELP LOOSEN MUUCUS AND OPEN AIRWAYS. KAI SX TO BE MADE AVAILABLE FOR PATIENT TO SUCTION ORAL CAVITY TOLERATED.
--- NOTE | 2019-05-15 13:20 | NUR ---
REPORT GIVEN TO TESSY HSIEH RN; SHE WILL TAKE OVER CARE OF PATIENT ONCE HE IS TRANSFERRED OVER TO PCU 14.
--- NOTE | 2019-05-15 13:30 | NUR ---
ASSUMED CARE: REPORT RECIEVED FROM LAZARA CASAS TRANSFERRED FROM ICU 14 TO PCU 14. IN RECLINER CHAIR, RESTING. PT'S RASPY BREATHING CAN BE HEARD OUTSIDE OF ROOM, RHONCHI HEARD T/O. 4L NC. TELE IN PLACE. NO FURTHER NEEDS OR CONCERNS AT THIS TIME.
--- NOTE | 2019-05-15 13:30 | NUR ---
TRANSFERRED TO PCU 14 VIA RECLINER CHAIR; OXYGEN AT 4L/MIN VIA NC. RN, X2, TRANSFERRED PATIENT WITHOUT INCIDENT. MEDS., IVF/TUBING, CHART AND BELONGINGS WITH PATIENT.
--- NOTE | 2019-05-15 15:34 | NUR ---
TECHNICAL INSTRUCTOR COURSE DEVELOPER WENT INTO PT'S ROOM AND CAME OUT STATING THAT PT WAS PULLING OFF HIS OXYGEN AND TOLD HER TO GET HER BOYFRIEND OUT OF HIS ROOM. CALL TO DR LOU DUE TO CIWA INCREASE, SEE DOCUMENTATION. NEW ORDER FOR ONE TIME OF EXTRA LIBRIUM, STATES PT HAS BAD REACTION TO ATIVAN
--- NOTE | 2019-05-15 18:09 | NUR ---
SHIFT SUMMARY: PT RESTING IN RECLINER. LETHARGIC, RASPY BREATHING NOTED, 4L NC. SUCTION AT BEDSIDE FOR PT WHEN COUGHING. NO EVENTS ON TELE SINCE ASSUMPTION OF CARE. MEDICATED X1 WITH EXTRA DOSE LIBRIUM FOR INCREASED CIWA, PT RESTING NOW, NO FURTHER EVENTS
--- NOTE | 2019-05-15 22:18 | NUR ---
ASPIRATION EVENT Pt sitting in recliner to take PO medication. Pt attempted to swallow FloMax capsule with small sip of water. Pt immediately began coughing, aspiration suspected by this RN. This RN called for product safety coordinator to come into room, product safety coordinator at bedside with this RN, attempting to suction, pt swinging at this RN. Pt suctioned out white, frothy, mucous. Hospitalist (Nona and Praveen) called to come to bedside and assess pt. O2 saturations 88-90% on 4L NC (previously 95-98%). Pt attempts to inspire with immediate cough reflex. Stat CXR ordered by ALLIE Castellano. O2 dropping to 70's; Pt placed on non-rebreather at 15L/min with o2 saturtionas up to 92% Pt deep suctioned by RT, slight relief. Pt coughing calmed, placed on [place] NC at 8L with o2 saturations at 92%. New orders recieved by ALLIE Morton and ALLIE Agudelo. Following instructions as ordered. Pt currently sitting high fowlers in bed, with occasional wet cough. Will continue to assess and update hospitalists of any changes.
--- NOTE | 2019-05-16 05:47 | NUR ---
Shift Summary Pt with aspiration episode this shift, see previous note for details. All PO medications held this shift per NPO orders, pt is strict NPO until swallow eval completed. Throughout shift, pt able to be titrated from 8L highflow NC down to 3L. Pt given IV haldol for withdrawl symptom management per Praveen Mendoza orders. Haldol given, pt sleeping but arrousable this shift. VS otherwise stable, pt lethargic, arrousable. No events on tele. Pt uses ceiling lift for transfers, refuses q2 turns when awake, turned per orders when sleeping and compliant. Andrews cath patent and draining dark yellow urine. Pt continues this shift with rhonci lung sounds, coarse and diminshed to bases. CXR completed stat per orders this shift. No further changes from initial shift assessment. Will continue to monitor and provide care per orders until day RN assumes care.
[2019-05-16 07:13] LABS: Albumin, Blood 2.5 g/dL (3.4-5.0); Anion Gap 10 mmol/L (6-16); Blood Urea Nitrogen 8 mg/dL (8-24); Bun/Creatinine Ratio 12.9 (12.0-20.0); CO2, Blood 23 mmol/L (21-32); Calcium, Blood 7.7 mg/dL (8.5-10.1); Chloride, Blood 111 mmol/L (98-108); Creatinine, Blood 0.62 mg/dL (0.60-1.20); Glomerular Filtration Rate >60 (60-); Glucose, Blood 83 mg/dL (70-99); Phosphorus, Blood 2.6 mg/dL (2.5-4.9); Potassium, Blood 3.9 mmol/L (3.5-5.5); Sodium, Blood 144 mmol/L (136-145)
[2019-05-16 07:21] LABS: BASOPHILS ABSOLUTE AUTO 0.07 K/mm3 (0.00-0.23); BASOPHILS PERCENT AUTO 1 % (0-2); EOSINOPHILS ABSOLUTE AUTO 0.89 K/mm3 (0.00-0.68); EOSINOPHILS PERCENT AUTO 13 % (0-6); Hematocrit 38.3 % (37.0-53.0); Hemoglobin 12.5 g/dL (13.5-17.5); IMMATURE GRAN PERCENT AUTO 0 % (0-1); LYMPHOCYTES ABSOLUTE AUTO 0.68 K/mm3 (0.84-5.20); LYMPHOCYTES PERCENT AUTO 10 % (21-46); MONOCYTES PERCENT AUTO 19 % (4-13); Mean Corpuscular HGB Conc 32.6 g/dL (31.5-36.5); Mean Platelet Volume 11.7 fL (9.1-12.4); NEUTROPHILS ABSOLUTE AUTO 3.99 K/mm3 (1.96-9.15); NEUTROPHILS PERCENT AUTO 58 % (41-73); Platelet Count 143 K/mm3 (150-400); RDW Coefficient Variation 17.1 % (11.7-14.2); RDW Standard Deviation 59.1 fL (35.1-46.3); Red Blood Cell Count 4.03 M/mm3 (4.30-5.90); White Blood Cell Count 6.93 K/mm3 (4.00-11.30)
[2019-05-16 07:23] LABS: Base Excess Venous -1.8 mmol/L; Bicarbonate Venous 22.8 mmol/L (24.0-30.0); PCO2 Venous 36.6 mmHg (38-42); PO2 Venous 41.8 mmHg (38-42); pH Blood Venous 7.41 (7.34-7.37)
[2019-05-16 07:25] LABS: Mean Corpuscular Volume 95 fL (80-100)
--- NOTE | 2019-05-16 07:35 | NUR ---
ASSUMED CARE: PT RESTING IN BED, TALKING TO STAFF BUT MUMBLING, SLURRED SPEECH, GARBLED, DIFFICULT TO UNDERSTAND. RT AT BEDSIDE GIVING BREATHING TX. RASPY RESPIRATIONS BUT SATURATING MID 90S ON 4L. NSR ON TELE. MEDICATED FOR HIP PAIN. NO FURTHER NEEDS AT THIS TIME.
--- NOTE | 2019-05-16 09:13 | NUR ---
ST AT BEDSIDE TO EVALUATE PT, PT AGITATED, YELLING AT STAFF. ST FELT PT NOT AWAKE ENOUGH FOR EVALUATION. PHYSICAL THERAPY AT BEDSIDE TO EVALUATE PT'S LEFT HIP DUE TO INCREASED C/O PAIN AFTER TRANSFER FROM CHAIR TO BED LAST NIGHT. PHYSICAL THERAPY OPTED TO NOT DO PT'S EVAL DUE TO AGITATION BUT DID NOT FEEL THAT DISPLACEMENT OCCURRED.
--- NOTE | 2019-05-16 10:20 | NUR ---
DR LOU AWARE THAT PT IS CURRENTLY NPO INCLUDING MEDS. TITRATED O2 DOWN TO 3L. DR STATES TO DC PEREZ AND REPLACE WITH CONDOM CATH. PLANS FOR DC DEPEND ON RECOMMENDATIONS OF THERAPIES
--- NOTE | 2019-05-16 10:40 | NUR ---
PEREZ CATH REMOVED AND REPLACED WITH CONDOM CATH
--- NOTE | 2019-05-16 11:48 | NUR ---
CALL TO PT'S BROTHER DEMARCO TO GIVE UPDATE. BROTHER STATES PT GETS AGITATED AND CONFUSED AT HOME. BROTHER ALSO STATES PT HAS YARIEL'S ESOPHAGUS AND HAS HAD TO HAVE DILATION DONE AT [facility]. STATES PT LIVES ALONE AND DOES NOT HAVE CAREGIVERS BUT DOES HAVE HOME HEALTH
--- NOTE | 2019-05-16 13:25 | NUR ---
PT'S SATURATION REMAINED IN 80S. ATTEMPTED TO PUT O2 IN PT'S MOUTH AND SATURATION WOULD IMPROVE BUT PT KEPT REMOVING. DISCUSSED WITH TELECOMMUNICATION SYSTEMS DESIGNER AND RT. ATTEMPTED TO PUT CHIN STRAP ON WHICH PT RIPPED OFF. BILATERAL WRIST RESTRAINTS PLACED. CALL TO DR LOU AND PT'S BROTHER DEMARCO TO UPDATE. DR LOU AWARE THAT SPEECH WILL REATTEMPT TOMORROW
--- NOTE | 2019-05-16 16:06 | NUR ---
PT HAS ONLY VOIDED SMALL AMOUNT SINCE DC OF PEREZ. BLADDER SCAN REVEALED LESS THAN 100. WILL CONTINUE TO MONITOR
--- NOTE | 2019-05-16 18:33 | NUR ---
CALL TO DR LOU TO MAKE HER AWARE THAT PT HAS PRODUCED VERY LITTLE URINE TODAY AND BLADDER SCAN ONLY HIGH 175. DISCUSSED LABS WITH HER AND DISCUSSED ABG IN AM DUE TO PT CONTINUING TO BE LETHARGIC AND SLURRED SPEECH. SEE NEW ORDERS
--- NOTE | 2019-05-16 22:37 | NUR ---
Assumed care Assumed care of pt at appros 191. Pt presents in bed, eyes closed, audible snore/harsh breathing, tachypneic but with o2 saturations in 90's on 4L via NC. Pt is restrained per orders and d/t pulling at lines and non compliant with o2 NC. Pt with pulse palp, ROM performed upon assessment. Pt very lethargic, difficult to arrouse. When aroused, pt is with AMS, slurred and incomprehensible speech. Lung sounds as documented in shift assessment, unchanged at this time. Pt had crespo discontinued per Dr. Fabian on day shift, minimal urine output noted. Nona OR[employer]NCE MECHANIC called and notified of minimal UO since crespo DC and orders recieved for Q6 bladder scan and PRN straight cath if bladder scan finds >350 in bladder. Pt remains strict NPO d/t previous aspiration event. All PO medications held per orders. Will continue to monitor and provide care per orders.
--- NOTE | 2019-05-16 23:58 | NUR ---
Pt with increasing alertness, able to state name and date of correctly, remembers that he is in the hospital for hip surgery. Pt unable to remember date, events since admission. Pt bladder scanned at 2358 with 205 shown in bladder. Orders to straight cath is bladder scan is greater than 350; will conintue to monitor retention.
[2019-05-17 03:33] LABS: PO2 Arterial 65.4 mmHg (80-100); pH Blood Arterial 7.43 (7.35-7.45)
[2019-05-17 04:37] LABS: Anion Gap 10 mmol/L (6-16); Blood Urea Nitrogen 9 mg/dL (8-24); Bun/Creatinine Ratio 14.5 (12.0-20.0); CO2, Blood 22 mmol/L (21-32); Calcium, Blood 7.8 mg/dL (8.5-10.1); Chloride, Blood 112 mmol/L (98-108); Creatinine, Blood 0.62 mg/dL (0.60-1.20); Glomerular Filtration Rate >60 (60-); Glucose, Blood 83 mg/dL (70-99); Potassium, Blood 3.8 mmol/L (3.5-5.5); Sodium, Blood 144 mmol/L (136-145)
--- NOTE | 2019-05-17 05:36 | NUR ---
AFIB RVR OF 140-150'S Pt asymptomic as he converted from NSR into Afib. Dr Cohen notified and orders recieved. also notifed of pt's no urine output this shift; updated on bladder scanned amounts. Orders for 500ml bolus. Lungs auscultated before bolus, dim to bases, coarse throughout. After 200 ml, lungs sound more dim and fine crackles heard to the left lower lobe. RT called to listen, agreed with change to lung sounds. fluid rate down to 150 per orders Pt with increased agitation and increased combativeness toward staff when restraints released for ROM and assessment. Will continue to monitor
--- NOTE | 2019-05-17 06:42 | NUR ---
Bladder scan at 0600 shows 235 in bladder.
--- NOTE | 2019-05-17 07:34 | NUR ---
Shift Summary Pt with continued AMS this shift, pt waxing and waning with severity of confusion. At times, pt is able to converse with staff rather appropriately, at other times, pt quite combative, aggitated, and disoriented. Otherwise, VSS and no changes to oxygen demand this shift. Pt remains on 4L via NC. Lungs sounds are more diminished than at begining of shift. Pt continues with labored breathing and accessory muscle usage at rest. Hacking, weak, unproductive cough throughout shift remains. Pt with cardiac events at documented in previous notes. Singular episode of AFIB RVR has since resolved. Since pt had the Afib event, he has had 3 events of VTACH. MD Coehn notifed and aware. No new orders recieved. Pt asymptomatic. Pt remains NPO per orders; awaiting speech eval today. Report given to SHON Sams who assumes care.
--- NOTE | 2019-05-17 18:19 | NUR ---
SHIFT SUMMARY PT REPSONDS TO VERBAL STIMULI FOR MAJORITY OF DAY, AT TIMES ALERT AND ORIENTED TO SELF/FAMILY. PT AGITATED WITH CARE, RESISTANT TO ORAL CARE AND TURNING TO CLEAN HIM. PT DENIES PAIN WHEN ASKED. PT SOB WITH EXERTION, ON 4L O2 VIA NC. BREATHING LABORED, PT USING ACCESSORY MUSCLES AND INTERCOSTAL RETRACTIONS T/O SHIFT. SPO2 87-95% DURING SHIFT. PT HAS WET, BARKY COUGH. ORAL CARE COMPLETED Q4 PER ORDERS. SUCTIONED SEVERAL TIMES, SET UP AT BEDSIDE. PT REMAINS NPO. PT RECEIVING Q6 IV LOPRESSOR, HR 70-90'S, PER TELE ONCE EPISODE WHERE HR TOUCHED 170'S MOMENTARILY. ELEVATED BP NOTED. PT HAD ONE CONTIENT VOID, 2 INCONTINENT VOIDS DURING SHIFT. WILL CONTINUE TO MONITOR UNITL REPORT GIVEN TO ONCOMING RN.
--- NOTE | 2019-05-17 19:32 | NUR ---
HTN NOTED UPON INITIAL VS ASSESSMENT; ALICJA ARECHIGA CALLED AND ORDERS RECIEVED. AWAITING MEDICATION FROM PHARMACY AT THIS TIME
--- NOTE | 2019-05-17 23:29 | NUR ---
Assumed care of pt at approx 1900; pt in process of straight cath by day RN at time of arrival. Pt with found to have HTN upon initial assessment by this RN, orders recieved and medication given per orders and blood pressure resolved to normotensive. Pt tachypneic, labored breathing and in moderate respiratory distress upon arrival. Pt quite combative and aggitated toward staff; yelling and fighting with restraints. Pt given time to calm self, restrains removed and assessed by this RN for injury, all skin WNL, ROM performed, and restraints re-placed. Pt turned q2 per orders. Pt with 1 incont void since straight cath, bladder scanned per orders and found with 173 mls. No events noted on tele at this time. Pt remains with AMS although able to converse with this RN in some-what coherant sentences which is an improvement from the night before. Pt continues to become agitated quickly with staff when staff attempts to provide basic care for pt. Pt oriented to self and location, but will become confused off and on. Pt waxing and waning with severity of slurred, incomprehensible speech. At times, he speaks rather clearly, then will become incomprehensible. See shift assessment for detailed assessment. Will continue to monitor and provide care per orders.
--- NOTE | 2019-05-18 00:22 | NUR ---
Report given to SHON Herron who assumes care.
[2019-05-18 04:08] LABS: BASOPHILS ABSOLUTE AUTO 0.07 K/mm3 (0.00-0.23); BASOPHILS PERCENT AUTO 1 % (0-2); EOSINOPHILS ABSOLUTE AUTO 0.47 K/mm3 (0.00-0.68); EOSINOPHILS PERCENT AUTO 8 % (0-6); Hematocrit 38.4 % (37.0-53.0); Hemoglobin 12.8 g/dL (13.5-17.5); IMMATURE GRAN ABSOLUTE AUTO 0.02 K/mm3 (0.00-0.10); IMMATURE GRAN PERCENT AUTO 0 % (0-1); LYMPHOCYTES ABSOLUTE AUTO 0.67 K/mm3 (0.84-5.20); LYMPHOCYTES PERCENT AUTO 11 % (21-46); MONOCYTES ABSOLUTE AUTO 0.98 K/mm3 (0.16-1.47); MONOCYTES PERCENT AUTO 16 % (4-13); Mean Corpuscular HGB 30.8 pg (26.0-34.0); Mean Corpuscular HGB Conc 33.3 g/dL (31.5-36.5); Mean Corpuscular Volume 93 fL (80-100); Mean Platelet Volume 11.8 fL (9.1-12.4); NEUTROPHILS ABSOLUTE AUTO 3.98 K/mm3 (1.96-9.15); NEUTROPHILS PERCENT AUTO 64 % (41-73); Platelet Count 163 K/mm3 (150-400); RDW Coefficient Variation 16.4 % (11.7-14.2); RDW Standard Deviation 55.4 fL (35.1-46.3); Red Blood Cell Count 4.15 M/mm3 (4.30-5.90); White Blood Cell Count 6.19 K/mm3 (4.00-11.30)
[2019-05-18 04:28] LABS: Albumin, Blood 2.6 g/dL (3.4-5.0); Anion Gap 8 mmol/L (6-16); Blood Urea Nitrogen 9 mg/dL (8-24); Bun/Creatinine Ratio 15.8 (12.0-20.0); CO2, Blood 25 mmol/L (21-32); Calcium, Blood 7.9 mg/dL (8.5-10.1); Chloride, Blood 111 mmol/L (98-108); Creatinine, Blood 0.57 mg/dL (0.60-1.20); Glomerular Filtration Rate >60 (60-); Glucose, Blood 115 mg/dL (70-99); Phosphorus, Blood 1.9 mg/dL (2.5-4.9); Potassium, Blood 3.6 mmol/L (3.5-5.5); Sodium, Blood 144 mmol/L (136-145)
--- NOTE | 2019-05-18 05:00 | NUR ---
SHIFT SUMMARY ..VERY CALM AND SLEEPING ALOT AFTER ASSUMING CARE AT 0100. EXCELLENT MOUTH CARE PROMOTES THICK BROWN YELLOW SECRETIONS FORM BACK OF THROAT. AND ALOT OF CLEARING OF THE NOISY BREATHING . CROUPY COUGH OCCASIONALLY ALWAYS EVIDENT. BLADDER DISTENDED AND Q 6 HR BLADDER SCAN , WHEN DUE , READ WAS > 1000. STRAIGHT CATH RETURN = 1400ML AND SOME URINE FLOW AROUND MEATUS. VERY CALM FOR CATH AND SEEMS MORE COMFORTABLE ..ALWAYS 28 RR. SR/ST
--- NOTE | 2019-05-18 09:56 | NUR ---
REPORT GIVEN TO FAMILIA PEREZ RN ON MEDICAL, PT TRANSFERING TO ROOM 308.
[2019-05-18 13:48] LABS: pH Blood Venous 7.46 (7.34-7.37)
[2019-05-18 13:49] LABS: Base Excess Venous -0.5 mmol/L; Bicarbonate Venous 24.5 mmol/L (24.0-30.0); PCO2 Venous 32.6 mmHg (38-42); PO2 Venous 158 mmHg (38-42)
[2019-05-18 14:01] LABS: Albumin, Blood 2.5 g/dL (3.4-5.0); Albumin/Globulin Ratio 0.8 (0.8-1.8); Bilirubin, Direct 0.2 mg/dL (0.0-0.3); Bilirubin, Indirect 0.3 mg/dL (0.1-0.7); Bilirubin, Total 0.5 mg/dL (0.1-1.0); Globulin, Blood 3.1 g/dL (2.2-4.0); Total Protein, Blood 5.6 g/dL (6.4-8.2)
[2019-05-18] MEDS ORDERED: TYLENOL325 MG PO (14:03)
[2019-05-18] MEDS ORDERED: METPRE4DP PO (14:04)
--- NOTE | 2019-05-18 18:15 | NUR ---
SHIFT SUMMARY ASSUMED CARE OF PATIENT THIS AM AT APPROX 0700. PT RESTING IN BED, APPEARS TO BE SLEEPING. PT RESPONDS TO VERBAL STIMULI, ORIENTED TO SELF. PT IS SLOW TO RESPOND AND SPEECH IN UNCOMPREHENSIBLE AT TIMES. PT TACHYPENIC, BREATHING LABORED, CONTINUES TO USE ACCESSORY MUSCLES AND INTERCOSTAL RETRACTION NOTED T/O SHIFT. PT TITRATED FROM 3L O2 VIA NC TO 2L O2 VIA NC, PER BROTHER DEMARCO, 2L O2 VIA NC IS PT HOME DOSE. SPO2 90-95% T/O SHIFT. PT HAS S/SX OF PAIN THIS AFTENROON, MEDICATED x1 WITH FENTNYL WITH POSITIVE RESULTS. ATTEMPTING TO DO ORAL CARE THIS AM, PT RESISTANT, REFUSING TO ALLOW STAFF TO COMPLETE. THIS AFTERNOON, PT ALLOWS THIS RN TO DO ORAL CARE AND USED LEMON MOUTH SWABS AFTER, PT STATES HE LIKE LEMON. PT REFUSING TO WORK WITH JADON VILLANUEVA DURING SHIFT, HOWEVER, ALLOWED THIS RN AND TECH TO SIT HIM ON EDGE OF BED AND DANGLE FOR APPROX 5 MINUTES, PT ATTEMTED TO VOID IN URINAL AT THIS TIME WITH NO OUTPUT. 2 PERSON MAX ASSIST USED TO TRANSFER PT TO EDGE OF BED. PT REMAINS IN WRIST RESTRAINTS, PULLING AT LINES AND ATTEMPTING TO HIT STAFF WHEN TAKEN OUT FOR ROM. THIS AFTERNOON, BLADDERSCAN SHOWING >200, NO DISTENTION OR DISTRESS NOTED, THIS EVEING, LOW ABD DISTENTION NOTED, BLADDERSCAN OF 1076, NOTIFIED DR OLU, NEW ORDER FOR PEREZ CATHETER, PLACED, PATIENT AND DRAINING, PT TOLERATED WELL. ELEVATE BP NOTED, HR 70-90'S, OTHER VSS. WILL CONTINUE TO MONITOR UNTIL REPORT GIVEN TO ONCOMING RN.
[2019-05-18 18:16] LABS: Source, Urine Catheter
[2019-05-18 18:20] LABS: Bilirubin, Urine Neg (Neg); Blood, Urine 3+ (Neg); Glucose Qualitative, Urine Neg (Neg); Ketones, Urine Neg (Neg); Leukocyte Esterase, Urine Neg (Neg); Nitrite, Urine Neg (Neg); Protein, Urine Neg (Neg); Urobilinogen, Urine NORM (Normal)
[2019-05-18 18:43] LABS: Appearance, Urine Clear (Clear); Color, Urine Yellow (P-Yellow)
[2019-05-18 18:44] LABS: Bacteria Not Seen /hpf; Squamous Epithelial Cells Not Seen /hpf (Few); White Blood Cells, Urine 0-2 /hpf (0-5)
[2019-05-19 04:50] LABS: BASOPHILS ABSOLUTE AUTO 0.08 K/mm3 (0.00-0.23); BASOPHILS PERCENT AUTO 1 % (0-2); EOSINOPHILS ABSOLUTE AUTO 0.55 K/mm3 (0.00-0.68); EOSINOPHILS PERCENT AUTO 7 % (0-6); Hematocrit 40.4 % (37.0-53.0); Hemoglobin 13.3 g/dL (13.5-17.5); IMMATURE GRAN ABSOLUTE AUTO 0.02 K/mm3 (0.00-0.10); IMMATURE GRAN PERCENT AUTO 0 % (0-1); LYMPHOCYTES ABSOLUTE AUTO 0.99 K/mm3 (0.84-5.20); LYMPHOCYTES PERCENT AUTO 13 % (21-46); MONOCYTES ABSOLUTE AUTO 1.21 K/mm3 (0.16-1.47); MONOCYTES PERCENT AUTO 16 % (4-13); Mean Corpuscular HGB 30.2 pg (26.0-34.0); Mean Corpuscular HGB Conc 32.9 g/dL (31.5-36.5); Mean Corpuscular Volume 92 fL (80-100); Mean Platelet Volume 12.1 fL (9.1-12.4); NEUTROPHILS ABSOLUTE AUTO 4.93 K/mm3 (1.96-9.15); NEUTROPHILS PERCENT AUTO 63 % (41-73); Platelet Count 201 K/mm3 (150-400); RDW Coefficient Variation 16.4 % (11.7-14.2); RDW Standard Deviation 55.8 fL (35.1-46.3); White Blood Cell Count 7.78 K/mm3 (4.00-11.30)
[2019-05-19 05:06] LABS: Albumin, Blood 2.6 g/dL (3.4-5.0); Anion Gap 6 mmol/L (6-16); Blood Urea Nitrogen 13 mg/dL (8-24); Bun/Creatinine Ratio 20.4 (12.0-20.0); CO2, Blood 26 mmol/L (21-32); Calcium, Blood 8.1 mg/dL (8.5-10.1); Chloride, Blood 111 mmol/L (98-108); Creatinine, Blood 0.64 mg/dL (0.60-1.20); Glomerular Filtration Rate >60 (60-); Glucose, Blood 108 mg/dL (70-99); Phosphorus, Blood 2.9 mg/dL (2.5-4.9); Potassium, Blood 4.1 mmol/L (3.5-5.5); Sodium, Blood 143 mmol/L (136-145)
[2019-05-19 10:22] LABS: Triglycerides 53 mg/dL (30-160)
--- NOTE | 2019-05-19 11:37 | NUR ---
PT worked with pt, attempting to follow commands but unable to do much, was able to stand him, but no further. back to bed with wrist restraints back in place. call light in reach.
--- NOTE | 2019-05-19 18:22 | NUR ---
PT SLEEPY THIS EVENING, ATTEMPTED TO GIVE PO MEDS CRUSHED WITH APPLESAUCE, HE WOKE ENOUGH TO TAKE THEM, BUT DID HAVE SOME WET SOUNDING COUGHING AFTER, ONLY GAVE ASA AND METOPROLOL. ASKED TO CHANGE FLAGYL BACK TO IV. PT RESTING AT THIS TIME, CALL LIGHT IN REACH.
[2019-05-20 03:50] LABS: Hematocrit 39.6 % (37.0-53.0); Mean Corpuscular HGB 30.6 pg (26.0-34.0); Mean Corpuscular HGB Conc 32.8 g/dL (31.5-36.5); Mean Corpuscular Volume 93 fL (80-100); Mean Platelet Volume 11.7 fL (9.1-12.4); Platelet Count 199 K/mm3 (150-400); RDW Coefficient Variation 16.6 % (11.7-14.2); RDW Standard Deviation 56.7 fL (35.1-46.3); Red Blood Cell Count 4.25 M/mm3 (4.30-5.90)
[2019-05-20 04:11] LABS: Albumin, Blood 2.5 g/dL (3.4-5.0); Anion Gap 8 mmol/L (6-16); Blood Urea Nitrogen 15 mg/dL (8-24); Bun/Creatinine Ratio 21.2 (12.0-20.0); CO2, Blood 23 mmol/L (21-32); Calcium, Blood 7.9 mg/dL (8.5-10.1); Chloride, Blood 110 mmol/L (98-108); Creatinine, Blood 0.71 mg/dL (0.60-1.20); Glomerular Filtration Rate >60 (60-); Glucose, Blood 89 mg/dL (70-99); Potassium, Blood 4.2 mmol/L (3.5-5.5); Sodium, Blood 141 mmol/L (136-145)
--- NOTE | 2019-05-20 04:32 | NUR ---
SHIFT SUMMARY PT A&O X3, OCC DISORIENTED/FORGETFUL REGARDING PLACE OR EVENT. POD#8 L HIP PINNING; DRESSING CDI; PPPX4. LUNGS WHEEZY/COARSE IN BASES THIS AM; RR 20+ T/O SHIFT. 3L O2 VIA NC; CONT.-OX IN PLACE, O2 SATURATION 90% AT THIS TIME. PREVENTATIVE MEPILEX TO COCCYS; HEELS FLOATED BILAT; PT REPOSITIONED T/O SHIFT. CATHETER DRAINING DARK URINE. PT DENIES SOB, NAUSESA AND CP. TELEMETRY IN PLACE; SR PER CUSTOM CAR BUILDER. ASP/MED PRECAUTIONS PER ST/ORDERS. SIDE RAILS X3 AND BED ALARM FOR SAFETY. CALL LIGHT IN REACH.
--- NOTE | 2019-05-20 08:00 | NUR ---
PT LAYING IN BED AWAKE, SPEAKING MUCH MORE CLEAR THAN YESTERDAY, IS ACTUALLY DIRECTING HIS OWN CARE, BUT IS PUTTING UP BARRIERS, DOES WANT A PAIN PILL FOR LEFT HIP PAIN, THIS WILL BE GIVEN, HE IS SOMEWHAT COOPERATIVE, IS OUT OF RESTRAINTS, LUNGS ARE COURSE T/O WITH SOME SCATTERED WHEEZING, IS CURRENTLY ON 3 LITERS O2 WHICH IS HIS BASELINE, HAS A WET JUNKY COUGH, BUT NOT BRINGING ANYTHING UP YET, HRR, TELE IN PLACE RUNNING SR PER MONITOR, SEE STRIP, TRACE EDEMA NOTED TO B/L LE, PPP FAINT, CAP REFILL <3SEC, VS STABLE, AFEBRILE, IV SITES ARE CLEAR AND PATENT, BTX4, ABD ROUND SOFT NONTENDER, VOIDS VIA PEREZ AT THIS TIME FOR RETENTION, MENDOZA URINE, SKIN HAS DRESSING TO LEFT HIP IS C/D/I, IS SENSITIVE TO BEING TOUCHED, EVERYTHING HURTS, CARROT HARVESTER ARE EQUAL, DPFE IS A BIT WEAKER ON LEFT, ODETTE, CALL LIGHT IN REACH.
--- NOTE | 2019-05-20 11:27 | NUR ---
PT COMPLAINING HE IS UNCOMFORTABLE, HIS BOTTOM IS HURTING, HE RECIEVED A PAIN PILL AND WE SAT HIM UP TO DANGLE ON SIDE OF BED, HE IS PROFOUNDLY WEAK, UNABLE TO PULL HIMSELF TO SITTING POSITON WITHOUT HELP, HE INSIST THAT HE CAN DO EVERYTHING ON HIS OWN AND HE KNOWS WHAT TO DO, ASSISTED HIM TO SIT ON SIDE OF BED FOR ABOUT 20 MINS, WE ATTEMPTED TO HAVE HIM STAND WITH A GAIT BELT AND WALKER, BUT WOULD NOT BRING HIS LEFT LEG UNDER HIM, STATES HE KNOWS BETTER WHAT TO DO, BUT WAS UNABLE TO MOVE LEGS, BECAME MORE WEAK AND NEEDED TO LAY DOWN, WE RETURNED HIM TO BED AND POSTIONED HIM ON HIS SIDE A BIT. STATES HE IS COMFORTABLE. SLEEPING SOUNDLY AT THIS TIME. CALL LIGHT IN REACH.
--- NOTE | 2019-05-20 14:30 | NUR ---
PT UP TO RECLINER CHAIR, STATES HE IS DOING OK, NO COMPLAINTS AT THIS TIME, CALL LIGHT IN REACH.
--- NOTE | 2019-05-20 18:37 | NUR ---
PT IS HALLUCINATING EVERY ONCE IN A WHILE, THOUGHT SOMEONE WAS IN THE ROOM WITH HIM THAT WASN'T. CONTINUES TO HAVE A POOR APPETITE, NO FURTHER CHANGES THIS SHIFT. CALL LIGHT IN REACH.
--- NOTE | 2019-05-21 05:27 | NUR ---
SHIFT SUMMARY PT SLEEPING IN ROOM COMFORTABLY AT THIS TIME. NO ACUTE CHANGES IN STATUS T.O NIGHT. PT SLEPT WELL IN PERIODS T/O NIGHT. PT CONTINUED TO BE CONFUSED TO WHERE HE WAS. PT ALSO HAD 2 EPISODES OF HALLUNCINATIONS DURING NIGHT. PT WAS REORIENTED TO TIME AND EVENT, AND WAS REDIRECTABLE. RESP REMAINED EVEN AND SLIGHTLY TACHY W/ EXERTION ON 3L NC W/ SATS >92%, DIPPING TO 88% W/ COUGHING EPISODES. PT DENIED PAIN T/O NIGHT, DENIED SOB. PEREZ CATH IN PLACED DRAIING TO GRAVITY. NS INFUSING IN PIV AT TKO. CALL LIGHT IN REACH, BED ALARM ON FOR SAFETY.
--- NOTE | 2019-05-21 19:23 | NUR ---
SHIFT SUMMARY PT A&Ox2-3 WITH INTERMITTENT CONFUSION. PT FORGETFUL AT TIMES. PT STATES THAT HE DOES NOT WANT TO GO TO SNF, THAT HIS HALEY WILL TAKE CARE OF HIS AT HOME, PT CALLS OUT HALEY'S NAME WHILE SLEEPING, CALRIFIED WITH PT BROTHER, DEMARCO, BROTHER STATES HALEY HAS YEARS AGO. PT REPORTS PAIN IN LLE, MEDICATED x1 WITH ULTRAM WITH POSITIVE RESULTS. PT SOB WITH EXERTION, PT CONTINUES TO HAVE BARKY COUGH, SP02 >90% ON 2L O2 VIA NC. PT RECEIVING BREATHING TREATMENTS PER RT. PER TELE PT SR 70-80'S, PT PULLS TELE UNIT OFF AND STATES HE DOES NOTE WANT IT BACK ON, NOTIFIED DR WEBBER, NEW ORDERS TO DISCONTINUE TELE. PT REFUSING TO WORK WITH THERAPY, LIFT USED TO TRANSFER PT UP TO CHAIR. PT STARTLES WHEN WOKEN UP, ATTEMTED TO SWING AT THIS RN, PT RESISTANT TO BEING REORIENTED. PT RECEIVING IV ANTIBIOTICS. PEREZ IN PLACE, PATENT AND DRAINING. VSS. NO OTHER ACUTE CHANGES NOTED DURING SHIFT. REPORT GIVEN TO ONCOMING RN.
--- NOTE | 2019-05-22 06:06 | NUR ---
SHIFT SUMMARY PT SLEEPING IN ROOM COMFORTABLY AT THIS TIME. NO ACUTE CHANGES IN STATUS T/O NIGHT. PT SLEPT WELL MOST OF THE NIGHT. AWOKE EVERAL TIMES AND PULLED O2 OFF AND DESATED TO 80'S. ONCE OXYGEN WAS REPLCED PT RECOVED VERY QUICKLY AND WENT BACK TO SLEEP. PT WAS MEDICATED ONCE DURING THE NIGHT FOR PAIN TO HIP. RESP EVEN UNLABORED ON 2L NC W/ SATS >92%. DENIED CP. BED ALARM ON FOR SAFETY, PT DID ATTEMPT ONCE TO GET OUT OF BED DURING NIGHT, WAS CONFUSED STATING "I NEED TO GET UP AND GET DRESSED FOR WORK". PT WAS EASILY REDIRECTABLE BACK TO BED. CALL LIGHT IN REACH.
--- NOTE | 2019-05-22 17:21 | NUR ---
SHIFT SUMMARY PT A&Ox2-3, WITH INTERMITTENT CONFUSION. FORGETFUL AT TIMES. PT UP IN CHAIR FOR MAJORITY OF SHIFT, 1-2 PERSON ASSIST WITH GB AND WALKER. PT REPORTS PAIN IN LLE, MEDICATED x1 WITH ULTRAM. PT DENIES SOB, SPO2 >92% ON 2L O2 VIA NC. PT CONTINUES TO HAVE BARKY COUGH, APPEARS TO BE IMPROVING. PT DENIES NAUSEA, POOR APPETITE, PT STATES "I WANT REAL FOOD". INITATED BLADDER TRAINING, PEREZ TO BE REMOVED ONCE PT FINISHS DINNER. VSS. NO OTHER ACUTE CHANGES NOTED DURING SHIFT. WILL CONTINUE TO MONITOR UNTIL REPORT GIVEN TO ONCOMING RN.
--- NOTE | 2019-05-22 18:20 | NUR ---
PT REQUESTING TO CHANGES ROOMS, STATING THAT HIS CURRENT ROOM IS DEPRESSING. EDUCATED PT THAT WE AWAITING A ROOM ON MEDICAL FLOOR AND ONCE A ROOM BECOMES AVAILABLE THAT HE WOULD BE TRANSFERED. PT REQUESTING THAT WE WHEEL HIM DOWNSTAIRS TO THE LOBBY, PT EDUCATED THAT HE IS A PAITIEN AND WE ARE ABLE TO WHEEL HIM AROUND THE UNIT HOWEVER WE ARE NOT ABLE TO TAKE HIM OFF THE UNIT. PT STATES HE WANTS TO LEAVE AND GO HOME, WHEN ASKED HOW HE WOULD GET THERE HE STATES THAT HIS BROTHER WOULD PICK HIM UP AND TAKE HIM HOME. PT EDUCATED THAT LEAVING PRIOR TO THE DR DISCHARGING HIM WOULD BE CONSIDED LEAVING AGAINST MEDICAL ADVICE AND RISKS INCLUDING INJURYING, WORSENING OF CONDITION AND . PT STATES "I KNOW THE RISKS. CALL MY BROTHER, HE WILL PICK ME UP AND TAKE ME HOME." THIS RN CALLED PT BROTHER, DEMARCO, AND EXPLAINED THAT PT IS WANTING TO BE PICKED UP, THAT HE WOULD BE LEAVING AMA. TRANSFERED HIM TO PATIENT ROOM TO SPEAK WITH PT. DEMARCO CALLED THIS RN BACK AFTER SPEAKING WITH PT, HE WILL NOT BE COMING TO PICK THE PATIENT UP UNTIL DISCHARGED. BROTHER STATES THAT THE PT LIVES IN A TRAILER AT A [facility] AND THAT THE REFLESHER STATES THE PT WOULD NOT BE ABLE TO COME BACK TO THE TRAILER WITHOUT A ROLL FORGER CAREGIVER. NOTIFIED DR WEBBER. WILL CONTINUE TO MONITOR.
--- NOTE | 2019-05-22 18:52 | NUR ---
BLADDER SCAN >500cc, NOTIFED DR FLORES, NEW ORDERS FOR PEREZ CATHETER FOR RETENTION
--- NOTE | 2019-05-23 03:45 | NUR ---
BLADDER SCAN PT HAS NOT VOIDED SINCE PEREZ CATHETER REMOVED. BLADDER SCAN DONE AND 357 ML SHOWN IN PATIENT BLADDER. PT STATES THAT HE DOES NOT HAVE THE URGE TO URINATE.
--- NOTE | 2019-05-23 05:00 | NUR ---
PROVIDER CONTACTED PT WITH NO VOID SINCE PEREZ REMOVAL @ APPROX 1800 LAST NIGHT. PT DENIES FEELING THE NEED TO VOID AND COULD NOT VOID WHEN UP TO COMMODE. MOST RECENT BLADDER SCAN @ [address] FELDMAN CONTACTED AND ORDERS RECEIVED TO REPEAT BLADDER SCAN IN TWO HOURS AND STRAIGHT CATH IF AMOUNT IN BLADDER IS >500 ML. WILL CONTINUE WITH MONITORING.
--- NOTE | 2019-05-23 05:38 | NUR ---
SHIFT SUMMARY PT HAS REMAINED AOX2 THROUGHOUT SHIFT. FREQUENTLY DISORIENTED TO PLACE AND TIME UPON WAKING, BUT HAS REORIENTED WELL. VSS. HAS BEEN COOPERATIVE WITH CARE. O2 SATS HAVE REMAINED >90% ON 2L VIA NASAL CANNULA; PT DESATURATES TO HIGH 80'S OCCASIONALLY WHEN HE REMOVES O2, BUT INCREASES TO >90% WITHIN 15-20 SECONDS ONCE REPLACED IN NARES. PT CONTINUES TO HAVE DECREASED APPETITE AND STATES THAT THE LIQUIDS ARE "TOO THICK TO DRINK", THOUGH HAS DRANK APPROXIMATELY 100 ML THIS SHIFT. TOLERATES PILLS CRUSHED IN PUDDING WELL. MEDICATED ONCE FOR PAIN TO L HIP THAT DECREASED WITH ORDERED MEDICATIONS AND REPOSITIONING. PT HAS NOT VOIDED SINCE PEREZ REMOVAL LAST EVENING, BUT ORDERS RECEIVED TO RECHECK BLADDER SCAN @ 0700 AND STRAIGHT CATH IF >500 ML. LAST BLADDER SCAN SHOWING 357 ML @ 0345 THIS AM. NO OTHER CHANGES NOTED FROM INITIAL ASSESSMENT. WILL CONTINUE TO MONITOR AND REPORT TO ONCOMING SHIFT RN. BED IN LOW POSITION, CALL LIGHT IN REACH. BED ALARM SET FOR SAFETY.
[2019-05-23] MEDS ORDERED: Brovana15 MCG/2 M INH (15:01)
[2019-05-23] MEDS ORDERED: MIRALAX17 GM PO (15:02)
[2019-05-23] MEDS ORDERED: METO25ER PO (15:04)
--- NOTE | 2019-05-23 16:10 | NUR ---
SHIFT SUMMARY PT ALERT TO SELF TO SELF AND SITUATION, BUT DISORIENTED AT TIMES. VS STABLE. O2 SATS REMAIN ABOVE 90% ON 3L NC. LS COARSE IN THE UPPER LOBES. PT HAS NOT VOIDED THIS SHIFT. BLADDER SCANS Q6. PT STRAIGHT CATHED THIS AM WITH 3OOML OUT. PT STRAIGHT CATHED AGAIN AT 1515 WITH 290ML. PT DENIES PAIN AT REST. PLAN FOR PT TO DISCHARGE TO [facility] THIS EVENING AT 1630. REPORT CALLED TO NURSE AT [facility]. AWAITING TRANSPORT. PT AWARE.
[2019-07-13] MEDS ORDERED: AZIT250 PO (17:13)
[2019-07-13] MEDS ORDERED: NASAL ALLERGY S13 ML INH (17:15)
[2019-07-14] MEDS ORDERED: ACET325 PO (10:21)
[2019-07-14] MEDS ORDERED: Brovana15 MCG/2 M INH (10:23)
[2019-07-14] MEDS ORDERED: METO25ER PO (10:24)
== END 2019-05-23 16:38 | DRG 480 ==
LOC: ER 18:57 → ICUE 20:37 → ICUW 20:37 → PCU 20:37 → SURS 20:37 → ICUE 05-12 14:28 → ICUW 05-12 17:07 → PCU 05-15 13:34
PROVIDERS: Emergency Medicine; Internal Medicine; Internal Medicine Critical Care Medicine; Internal Medicine Pulmonary Disease; Nurse Practitioner Acute Care; Orthopaedic Surgery; ADMIT Internal Medicine
PROC: 0QS934Z Reposition Left Femoral Shaft with Internal Fixation Device, Percutaneous Approach (ICD-10-PCS; principal; 2019-05-12 07:30)
DX: S72.012A Unspecified intracapsular fracture of left femur, initial encounter for closed fracture (principal); J96.22 Acute and chronic respiratory failure with hypercapnia; J96.21 Acute and chronic respiratory failure with hypoxia; J18.0 Bronchopneumonia, unspecified organism; J95.2 Acute pulmonary insufficiency following nonthoracic surgery; J44.1 Chronic obstructive pulmonary disease with (acute) exacerbation; I47.1 Supraventricular tachycardia; F10.231 Alcohol dependence with withdrawal delirium; E51.2 Wernicke's encephalopathy; W19.XXXA Unspecified fall, initial encounter; E03.9 Hypothyroidism, unspecified; J44.9 Chronic obstructive pulmonary disease, unspecified; Z99.81 Dependence on supplemental oxygen; K22.70 Barrett's esophagus without dysplasia; E78.5 Hyperlipidemia, unspecified; Z79.01 Long term (current) use of anticoagulants; F03.90 Unspecified dementia, unspecified severity, without behavioral disturbance, psychotic disturbance, mood disturbance, and anxiety; I48.2 Chronic atrial fibrillation; Z78.1 Physical restraint status; I48.0 Paroxysmal atrial fibrillation; D69.6 Thrombocytopenia, unspecified; E83.39 Other disorders of phosphorus metabolism; I95.9 Hypotension, unspecified; N40.1 Benign prostatic hyperplasia with lower urinary tract symptoms; R33.8 Other retention of urine
CPT/HCPCS: 31720; 36415; 36600; 51701; 71045; 72170; 73502; 80048; 80053; 80069; 80076; 81001; 82140; 82803; 83735; 83880; 84478; 85025; 85027; 85610; 92526; 92610; 93005; 93010; 94640; 94660; 94667; 94760; 94762; 96374; 96375; 97110; 97162; 97530; 99285-25; A9270-GY; C1713; C1769; C9113; J0360; J0690; J0696; J1170; J1630; J1650; J2060; J2250; J2405; J2704; J3010; J3411; J3475; J7030; J7040; J7042; J7050; J7060; J7120; J7605